=== PATIENT | male | born 1995 | race Caucasian/White ===

== ENCOUNTER 2017-01-02 07:40 | Inpatient (IN) | payer BC, OTHER ==
[~2017-01-02] VITALS: Ht 177.8 cm; Wt 73.5 kg
[2017-01-04] MEDS ORDERED: MAGNESIUM HYDROXIDE 30 ML LIQUID UDC PO PRN (19:30)
[2017-01-04] MEDS ORDERED: CLONIDINE HCL 0.1 MG TABLET PO PRN (19:30)
[2017-01-04] MEDS ORDERED: LORAZEPAM 2 MG/1 ML VIAL IM PRN (19:30)
[2017-01-04] MEDS ORDERED: ACETAMINOPHEN 325 MG TABLET PO PRN (19:30)
[2017-01-04] MEDS ORDERED: LOPERAMIDE HCL 2 MG CAPSULE PO PRN ×2 (19:30)
[2017-01-04] MEDS ORDERED: ONDANSETRON 4 MG/2 ML VIAL IM PRN (19:30)
[2017-01-04] MEDS ORDERED: MAG HYDROX/AL HYDROX/SIMETH 30 ML LIQUID UDC PO PRN (19:30)
[2017-01-04] MEDS ORDERED: ONDANSETRON ODT 4 MG TAB.RAPDIS SL PRN (19:30)
[2017-01-04] MEDS ORDERED: MIRALAX 17 GM POWD.PACK PO PRN (19:30)
[2017-01-04] MEDS ORDERED: LORAZEPAM 1 MG TABLET PO PRN ×2 (19:30)
[2017-01-04 20:28] LABS: BASOPHILS # (AUTO) 0.1 K/uL (0.0-8.0); BASOPHILS % (AUTO) 0.8 % (0.0-2.0); EOSINOPHILS # (AUTO) 0.1 K/uL (0.0-0.7); HEMATOCRIT 43.2 % (40-50); HEMOGLOBIN 14.9 G/DL (14.0-18.0); LYMPHOCYTES # (AUTO) 1.6 K/UL (0.8-4.8); LYMPHOCYTES % (AUTO) 23.2 % (20.5-51.5); MEAN CORPUSCULAR HEMOGLOBIN 30.7 UUG (27.0-31.0); MEAN CORPUSCULAR HGB CONC 34 g/dL (32.0-37.0); MEAN CORPUSCULAR VOLUME 89.3 FL (82.0-92.0); MONOCYTES # (AUTO) 0.6 K/UL (0.1-1.30); MONOCYTES % (AUTO) 8.9 % (0.0-11.0); NEUTROPHILS # (AUTO) 4.7 K/UL (1.8-8.9); NEUTROPHILS % (AUTO) 66.1 % (38.5-71.5); PLATELET COUNT (AUTO) 286 K/UL (150-450); RED BLOOD CELL COUNT(AUTO) 4.84 MIL/UL (4.7-6.1); WHITE BLOOD COUNT (AUTO) 7.1 K/UL (4.0-11.2)
[2017-01-04 20:45] LABS: ALANINE AMINOTRANSFERASE 26 U/L (16-63); ALKALINE PHOSPHATASE 77 U/L (50-136); AMYLASE 52 U/L (25-115); ASPARTATE AMINOTRANSFERASE 21 U/L (15-37); BILIRUBIN,TOTAL 0.7 mg/dL (0.2-1.0); CARBON DIOXIDE 29 mmol/L (21-32); CHLORIDE 101 mmol/L (98-107); GLUCOSE 103 mg/dL (74-106); LIPASE 71 U/L (73-393); MAGNESIUM 1.9 mg/dL (1.8-2.4); POTASSIUM 3.4 mmol/L (3.5-5.1); TOTAL PROTEIN, SERUM 8.7 g/dL (6.4-8.2); UREA NITROGEN, BLOOD 10 mg/dL (7-18)
--- NOTE | 2017-01-04 20:45 | NUR ---
INTAKE ASSESSMENT BP:: 139/87, HR: 57, RR: 18, SpO2: 96%, T: 98 Pain: 5/10 generalized body aches Ht: 5'10" Wt: 162 lbs Pt is in stable condition to be admitted on unit. Unit protocols regarding medications and Vitals signs Q4H were explained. Pt verbalized understanding. Will monitor.
[2017-01-04 20:47] LABS: *AMPHETAMINE, URINE NEGATIVE (NEGATIVE); *BARBITURATE, URINE NEGATIVE (NEGATIVE); *CANNABINOID, URINE POSITIVE (NEGATIVE); *COCCAINE, URINE NEGATIVE (NEGATIVE); *OPIATE, URINE NEGATIVE (NEGATIVE); *PHENCYCLIDINE SCREEN,URINE NEGATIVE (NEGATIVE)
[2017-01-04 20:52] LABS: THYROID STIMULATING HORMONE 0.876 mIU/mL (0.358-3.740)
[2017-01-04 20:54] LABS: ETHANOL < 3 MG/DL (0-0)
[2017-01-04] MEDS ORDERED: THIAMINE HCL 200 MG/2 ML VIAL IM ONE (21:00)
[2017-01-04] MEDS ORDERED: IBUP-1957 PO (21:40)
[2017-01-04] MEDS ORDERED: [UNRECOGNIZED DRUG - CODE] PO (21:40)
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
[2017-01-04] MEDS ORDERED: diphenhydrAMINE 50 MG CAPSULE ONE (22:32)
[2017-01-04] MEDS ORDERED: IBUPROFEN 400 MG TABLET ONE (22:32)
[2017-01-04] MEDS ORDERED: LORAZEPAM 1 MG TABLET ONE (22:32)
--- NOTE | 2017-01-04 22:32 | NUR ---
PRN ATIVAN/MOTRIN/BENADRYL Pt complains of body aches 10/10, inability to sleep, anxiety, and restlessness. PRN Ativan 1 mg, Motrin and Benadryl administered as ordered. Breathing is even and unlabored, safety measures in place. Will monitor effectiveness or medications.
[2017-01-04] MEDS: IBUPROFEN 400 MG TABLET PO PRN (22:34)
[2017-01-04] MEDS: diphenhydrAMINE 50 MG CAPSULE PO PRN (22:35)
--- NOTE | 2017-01-04 23:32 | NUR ---
PRN REASSESSMENT PRN medications effective. Pt noted to be more calm and less anxious. Pt lying in bed appears drowsy and reports he is ready to sleep. Pt also reports decrease in body aches 6/10. Breathing is even and unlabored, safety measures in place. Will monitor.
[2017-01-05] VITALS: BP 123/57
[2017-01-05 04:00] VITALS: BP 117/59
--- NOTE | 2017-01-05 04:00 | NUR ---
COWS/CIWA DEFERRED COWS/CIWA deferred d/t pt lying in bed with eyes closed noted to be asleep. Respirations 16, breathing is even and unlabored. Safety measures in place. Will continue to monitor.
--- NOTE | 2017-01-05 07:00 | NUR ---
END OF SHIFT Pt is a 21 year old male admitted on 01/04/17 for Benzo, ETOH, Opiate, Cocaine and Marijuana dependency. Pt is full code with allergy to PCN. At 2232 he received PRN Motrin, Ativan and Benadryl. He slept a total of 6 hrs, Intake:796mL Void: x2 BM:0 COWS: 5, CIWA: 5. Pt remains alert and oriented x4, breathing is even and unlabored, safety measures in place. Endorsed to oncoming shift.
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
[2017-01-05 08:00] VITALS: BP 129/85
[2017-01-05] MEDS: FOLIC ACID 1 MG TABLET PO SCH (08:21)
[2017-01-05] MEDS: LORAZEPAM 1 MG TABLET PO SCH ×4 (08:21→21:26)
[2017-01-05] MEDS: DOCUSATE SODIUM 250 MG CAPSULE PO SCH (08:21)
[2017-01-05] MEDS: MULTIVITAMINS,THERAPEUTIC TABLET PO SCH (08:21)
[2017-01-05] MEDS: THIAMINE HCL 100 MG TABLET PO SCH (08:22)
[2017-01-05] MEDS ORDERED: TUBERCULIN,PURIF.PROT.DERIV. 5 TU/0.1 ML TEST ID ONE (09:00)
[2017-01-05 12:00] VITALS: BP 133/92
[2017-01-05] MEDS: GABAPENTIN 300 MG CAPSULE PO SCH ×2 (14:19→21:26)
[2017-01-05] MEDS ORDERED: POTASSIUM CHLORIDE 20 MEQ TAB.PRT.SR PO ONE (15:00)
[2017-01-05 16:00] VITALS: BP 134/73
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
[2017-01-05 20:00] VITALS: BP 133/80
[2017-01-05] MEDS: diphenhydrAMINE 50 MG CAPSULE PO PRN (21:26)
--- NOTE | 2017-01-05 21:26 | NUR ---
PRN BENADRYL Pt complains of inability to fall asleep. PRN Benadryl administered as ordered. Breathing even and unlabored, respirations 16, safety measures in place. Will monitor effectiveness.
--- NOTE | 2017-01-05 22:26 | NUR ---
PRN BENADRYL REASSESSMENT PRN medication effective. Pt is lying in bed with eyes closed noted to be asleep. No facial grimacing noted. Respirations 16, breathing is even and unlabored. Safety measures in place. Will continue to monitor.
[2017-01-06] VITALS: BP 122/78
--- NOTE | 2017-01-06 02:20 | NUR ---
MD Communication Pt c/o feeling anxious and generalized body aches=01/04. Contacted Dr. Cardona and ordered Robaxin 750 mg PO Q8HPRN and Vistaril 50 mg PO Q6HPRN. Carried out and primary RN to administer.
[2017-01-06] MEDS ORDERED: HYDROXYZINE PAMOATE 25 MG CAPSULE PO PRN (02:30)
[2017-01-06] MEDS: METHOCARBAMOL 750 MG TABLET PO PRN (02:31)
--- NOTE | 2017-01-06 02:34 | NUR ---
PRN ROBAXIN/VISTARIL Pt complains of body aches 6/10 and anxiety. Pt is observed to be restless. PRN Robaxin and Vistaril administered as ordered. Breathing even and unlabored, safety measures in place. Will monitor effectiveness.
[2017-01-06] MEDS ORDERED: HYDROXYZINE PAMOATE 25 MG CAPSULE ONE (02:36)
[2017-01-06] MEDS ORDERED: METHOCARBAMOL 750 MG TABLET ONE (02:36)
--- NOTE | 2017-01-06 03:34 | NUR ---
PRN ROBAXIN/VISTARIL REASSESSMENT PRN medications effective. Pt is lying in bed with eyes closed noted to be asleep. No facial grimacing noted. Breathing is even and unlabored, safety measures in place. Will monitor.
--- NOTE | 2017-01-06 04:00 | NUR ---
VITALS/COWS/CIWA DEFERRED 0400 vitals refused. COWS/CIWA deferred d/t pt lying in bed with eyes closed noted to be asleep. Respirations 16, breathing is even and unlabored. Safety measures in place. Will monitor.
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
[2017-01-06 08:00] VITALS: BP 99/64
[2017-01-06] MEDS: GABAPENTIN 300 MG CAPSULE PO SCH ×3 (08:22→21:31)
[2017-01-06] MEDS: FOLIC ACID 1 MG TABLET PO SCH (08:22)
[2017-01-06] MEDS: MULTIVITAMINS,THERAPEUTIC TABLET PO SCH (08:22)
[2017-01-06] MEDS: LORAZEPAM 1 MG TABLET PO SCH ×3 (08:22→21:31)
[2017-01-06] MEDS: DOCUSATE SODIUM 250 MG CAPSULE PO SCH (08:22)
[2017-01-06] MEDS: THIAMINE HCL 100 MG TABLET PO SCH (08:22)
[2017-01-06 12:00] VITALS: BP 129/93
[2017-01-06 16:00] VITALS: BP 141/76
[2017-01-06] MEDS ORDERED: LORAZEPAM 1 MG TABLET PO PRN ×2 (18:00)
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
[2017-01-06 20:02] VITALS: BP 139/85
[2017-01-06] MEDS: diphenhydrAMINE 50 MG CAPSULE PO PRN (21:31)
--- NOTE | 2017-01-06 21:31 | NUR ---
PRN BENADRYL Pt complains of insomnia and inability to sleep. Denies auditory/visual hallucinations. PRN Benadryl administered as ordered. Breathing is even and unlabored, safety measures in place. Will continue to monitor effectiveness.
--- NOTE | 2017-01-06 22:31 | NUR ---
PRN BENADRYL REASSESSMENT PRN medication ineffective. Pt still awake, reading in bed unable to fall asleep. Breathing even and unlabored, safety measures in place. Will monitor.
[2017-01-07] VITALS: BP 125/75
[2017-01-07] MEDS: METHOCARBAMOL 750 MG TABLET PO PRN (00:48)
--- NOTE | 2017-01-07 00:48 | NUR ---
PRN ATIVAN/ROBAXIN Pt complains of anxiety/agitation and body aches 11/04. CIWA:7. PRN Ativan and Robaxin administered as ordered. Breathing is even and unlabored, safety measures in place. Will continue to monitor effectiveness.
--- NOTE | 2017-01-07 01:45 | NUR ---
PRN ATIVAN/ROBAXIN REASSESSMENT PRN medications effective. Pt is lying comfortably in bed with eyes closed and is noted to be asleep. No facial grimacing noted. Breathing even and unlabored, safety measures in place. Will monitor.
[2017-01-07 04:07] LABS: HEPATITIS B SURFACE AG Negative (Negative)
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
[2017-01-07 08:00] VITALS: BP 102/58
--- NOTE | 2017-01-07 08:00 | NUR ---
START OF SHIFT NOTE patient is alert X4, orientated to unit. Vital signs WNL. Morning CIWA 4 COWS 4. Patient slept 5 hours last night according to night nurse. Patient states, "sletp much better last night". Patient is on an Ativan taper and tolerating well. All safety measures in place, call light within reach, bed locked and in lowest position. will continue to monitor.
[2017-01-07] MEDS: GABAPENTIN 300 MG CAPSULE PO SCH ×2 (08:50→14:51)
[2017-01-07] MEDS: MULTIVITAMINS,THERAPEUTIC TABLET PO SCH (08:50)
[2017-01-07] MEDS: THIAMINE HCL 100 MG TABLET PO SCH (08:50)
[2017-01-07] MEDS: FOLIC ACID 1 MG TABLET PO SCH (08:51)
[2017-01-07] MEDS: LORAZEPAM 1 MG TABLET PO SCH ×4 (08:51→20:35)
[2017-01-07 12:00] VITALS: BP 143/81
[2017-01-07 16:00] VITALS: BP 118/58
--- NOTE | 2017-01-07 18:51 | NUR ---
END OF SHIFT NOTE Patient is a 21 year old make admitted on 01/02/17 for ETOH and opiate dependence . Patient is full code allergic to penicillin. Patient is alert X 4 vital sign stable throughout the day. His Last CIWA 5 COWS 6. Patient on a 5 day Ativan taper and tolerating well. Patient complaint with medications and MD orders. Patient participated in group and socialized around the unit. No PRN meds given. Patient slept on and off today. All safety measures in place; call light within reach, bed in lowest position, and locked. All needs have been met. Will endorse to oncoming nurse.
--- NOTE | 2017-01-07 19:50 | NUR ---
START OF SHIFT Received report from day shift nurse. Pt is lying in bed watching TV. He is a 21 yo male admitted to [facility] [place] on 01/04 for BZD, ETOH, and opiate dependence with a h/o cocaine and cannabis use. He is A&O x 4 and ambulatory. Allergic to PCN's, full code status, and on a regular diet. He has a PMH of anxiety and seizures. On admission he reported using Xanax 20ng per day, whiskey 500mL per day, oxycodone 30mg per day, heroin 0.2 grams occasionally, cocaine 1 gram, and marijuana 1 gram. He started a 5 day Ativan taper on 01/05. Pt reports anxiety, body aches, runny nose, and tooth pain. Medications due for management of withdrawal symptoms. Fall and seizure precautions in place. Bed is down with call light in reach.
[2017-01-07 20:00] VITALS: BP 129/63
[2017-01-07] MEDS: BACLOFEN 10 MG TABLET PO SCH (20:35)
[2017-01-07] MEDS: IBUPROFEN 400 MG TABLET PO PRN (20:35)
[2017-01-07] MEDS: DICYCLOMINE HCL 20 MG TABLET PO SCH (20:35)
--- NOTE | 2017-01-07 20:36 | NUR ---
PRN Motrin administration Pt reports body aches and tooth pain 02/03. Routine Baclofen and PRN Motrin administered.
[2017-01-07] MEDS ORDERED: GABAPENTIN 300 MG CAPSULE PO SCH (21:00)
[2017-01-08] VITALS: BP 122/76
[2017-01-08] MEDS: TRAZODONE 50 MG TABLET PO PRN
--- NOTE | 2017-01-08 00:02 | NUR ---
PRN Trazodone Pt reports inability to sleep. PRN Trazodone administered per orders.
--- NOTE | 2017-01-08 04:00 | NUR ---
0400 Vitals refused. COWS and CIWA deferred Pt refused to be woken for 0400 vitals. Respirations even and unlabored. COWS and CIWA ordered Q4HWA. Safety measures in place.
--- NOTE | 2017-01-08 07:23 | NUR ---
END OF SHIFT Report provided to day shift nurse. Pt is lying in bed resting. He is a 21 yo male admitted to [facility] on 01/04 for BZD, ETOH, and opiate dependence with a h/o cocaine and cannabis use. He is A&O x 4 and ambulatory. Allergic to PCN's, full code status, and on a regular diet. He has a PMH of anxiety, seizures, and tooth pain currently. On admission he reported using Xanax 20ng per day, whiskey 500mL per day, oxycodone 30mg per day, heroin 0.2 grams occasionally, cocaine 1 gram, and marijuana 1 gram. He started a 5 day Ativan taper on 01/05. PRN Motrin and Trazodone administered. Last COWS 5 and CIWA 3. He drank 946 and slept 5 hours. Fall and seizure precautions in place. Bed is down with call light in reach.
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
[2017-01-08] MEDS: LORAZEPAM 1 MG TABLET PO SCH ×3 (08:30→21:06)
[2017-01-08] MEDS: FOLIC ACID 1 MG TABLET PO SCH (08:31)
[2017-01-08] MEDS: MULTIVITAMINS,THERAPEUTIC TABLET PO SCH (08:31)
[2017-01-08] MEDS: THIAMINE HCL 100 MG TABLET PO SCH (08:31)
[2017-01-08] MEDS: BACLOFEN 10 MG TABLET PO SCH ×2 (08:31→14:47)
[2017-01-08] MEDS: DICYCLOMINE HCL 20 MG TABLET PO SCH ×3 (08:31→21:06)
[2017-01-08] MEDS: GABAPENTIN 300 MG CAPSULE PO SCH ×3 (08:31→21:07)
[2017-01-08 08:35] VITALS: BP 123/70
--- NOTE | 2017-01-08 11:00 | NUR ---
NSG ENTRY Pt observed in room on bed. No distress noted at this time.
[2017-01-08 13:28] VITALS: BP 101/60
[2017-01-08 16:00] VITALS: BP 128/84
--- NOTE | 2017-01-08 18:32 | NUR ---
END OF SHIFT Pt 21 y/o male admitted for benzo , etoh, opioid , coacin, and canniboid. Pt alert and oriented to name, place, and time. Perrla. Skin warm and slightly moist to touch. Respirations even unlabored. Bilateral hand tremors noted slightly. Pt observed mostly in room this morning, but did attend group activity. Pt medication compliant and tolerated well. No ASE noted. Bed on lowest position with side rails x2 up for safety. Call light within reach. No distress noted at this time.
[2017-01-08 20:00] VITALS: BP 138/78
--- NOTE | 2017-01-08 20:00 | NUR ---
START OF SHIFT Received report from day shift nurse. Pt attended a group meeting and returned to his room after. He is a 21 yo male admitted to [facility] on 01/04 for BZD, ETOH, and opiate dependence with a h/o cocaine and cannabis use. He is A&O x 4 and ambulatory. Allergic to PCN's, full code status, and on a regular diet. He has a PMH of anxiety and seizures. On admission he reported using Xanax 20ng per day, whiskey 500mL per day, oxycodone 30mg per day, heroin 0.2 grams occasionally, cocaine 1 gram, and marijuana 1 gram. He started a 5 day Ativan taper on 01/05. Pt reports anxiety, tooth pain, and is noted with dilated pupils. Ativan taper due tonight. Fall and seizure precautions in place. Bed is down with call light in reach.
[2017-01-08] MEDS ORDERED: BACLOFEN 10 MG TABLET PO SCH (21:00)
[2017-01-08] MEDS: BACLOFEN 20 MG TABLET PO SCH (21:06)
[2017-01-08] MEDS: BENZOCAINE ORAL CARE 12 ML BOTTLE MM PRN (21:07)
[2017-01-08] MEDS: IBUPROFEN 400 MG TABLET PO PRN (21:07)
--- NOTE | 2017-01-08 21:07 | NUR ---
PRN Motrin and Anbesol administration Pt c/o tooth pain 01/04 related to multiple cavities. PRN Anbesol and Motrin administered.
--- NOTE | 2017-01-08 22:07 | NUR ---
PRN Anbesol and Motrin reassessment PRN Anbesol and Motrin effective. Pt reports relief of tooth pain.
[2017-01-09] VITALS: BP 130/79
[2017-01-09] MEDS: TRAZODONE 50 MG TABLET PO PRN ×2 (00:47→21:48)
--- NOTE | 2017-01-09 00:48 | NUR ---
PRN Trazodone administration Pt c/o inability to sleep. PRN Trazodone administered.
--- NOTE | 2017-01-09 01:48 | NUR ---
PRN Trazodone reassessment PRN Trazodone effective. Pt is lying comfortably in bed resting with eyes closed. Respirations even and unlabored. Safety measures in place.
--- NOTE | 2017-01-09 04:00 | NUR ---
0400 Vitals refused. 0400 COWS and CIWA deferred. Pt refused to be woken for 0400 vitals. Respirations even and unlabored. COWS and CIWA ordered Q4HWA. Safety measures in place.
--- NOTE | 2017-01-09 07:17 | NUR ---
END OF SHIFT Report provided to day shift nurse. Pt is lying in bed resting. He is a 21 yo male admitted to [facility] on 01/04 for BZD, ETOH, and opiate dependence with a h/o cocaine and cannabis use. He is A&O x 4 and ambulatory. Allergic to PCN's, full code status, and on a regular diet. He has a PMH of anxiety and seizures. He currently has tooth pain r/t multiple cavities. On admission he reported using Xanax 20ng per day, whiskey 500mL per day, oxycodone 30mg per day, heroin 0.2 grams occasionally, cocaine 1 gram, and marijuana 1 gram. Pt started a 5 day Ativan taper on 01/05. PRN Anbesol, Motrin, and Trazodone administered. He drank 1446mL and slept for 7 hours. Fall and seizure precautions in place. Bed is down with call light in reach.
[2017-01-09 08:00] VITALS: BP 116/76
--- NOTE | 2017-01-09 08:09 | NUR ---
START OF SHIFT Pt 21 y/o male admitted for benzo , etoh, opioid , coacin, and canniboid. Pt received in room on bed with eyes closed resting, but easily arousable to name. Pt alert and oriented to name, place, and time. Perrla. Skin warm and slightly moist to touch. Respirations even unlabored. Bilateral hand tremors noted slightly. It was reported that pt slept for 7 hours last night. Bed on lowest position with side rails x2 up for safety. Call light within reach. No distress noted at this time.
[2017-01-09] MEDS: IBUPROFEN 400 MG TABLET PO PRN (08:32)
[2017-01-09] MEDS: FOLIC ACID 1 MG TABLET PO SCH (08:32)
[2017-01-09] MEDS: BENZOCAINE ORAL CARE 12 ML BOTTLE MM PRN (08:33)
[2017-01-09] MEDS: LORAZEPAM 1 MG TABLET PO SCH ×2 (08:33→21:45)
[2017-01-09] MEDS: GABAPENTIN 300 MG CAPSULE PO SCH ×3 (08:33→21:45)
[2017-01-09] MEDS: THIAMINE HCL 100 MG TABLET PO SCH (08:33)
[2017-01-09] MEDS: BACLOFEN 20 MG TABLET PO SCH ×3 (08:33→21:45)
[2017-01-09] MEDS: MULTIVITAMINS,THERAPEUTIC TABLET PO SCH (08:33)
[2017-01-09] MEDS: DICYCLOMINE HCL 20 MG TABLET PO SCH ×3 (08:33→21:45)
--- NOTE | 2017-01-09 08:39 | NUR ---
PRN Pt with c/o body pain 11/04. Motrin po prn per MD order given and tolerated well.
--- NOTE | 2017-01-09 08:39 | NUR ---
PRN Pt with c/o tooth pain 01/04. Anbesol prn per MD order given and tolerated well.
--- NOTE | 2017-01-09 09:39 | NUR ---
PRN EVAL Pt with no c/o body pain noted, but still states has periodic tooth aches.
[2017-01-09 12:00] VITALS: BP 141/82
--- NOTE | 2017-01-09 14:31 | NUR ---
PRN Pt states he is anxious. Pressured speech observed. Catapres po prn per MD order given and tolerated well.
--- NOTE | 2017-01-09 15:31 | NUR ---
PARDEEP ELLIS Pt observed in activity room sitting on couch. No distress noted at this time.
[2017-01-09 17:16] VITALS: BP 132/78
--- NOTE | 2017-01-09 18:03 | NUR ---
END OF SHIFT Pt 21 y/o male admitted for benzo , etoh, opioid , cocaine, and canniboid. Pt alert and oriented to name, place, and time. Perrla. Skin warm and slightly moist to touch. Respirations even unlabored. Bilateral hand tremors noted slightly. Pt observed mostly in dining room and did attend group activity. Pt medication compliant and tolerated well. No ASE noted. Pt was seen by Dr. Mosley today. Bed on lowest position with side rails x2 up for safety. Call light within reach. No distress noted at this time.
[2017-01-09 20:00] VITALS: BP 123/81
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
--- NOTE | 2017-01-09 21:48 | NUR ---
PRN TRAZADONE ADMINISTRATION PATIENT REQUESTS FOR SLEEP AID. PRN TRAZADONE GIVEN. WILL MONITOR FOR EFFECTIVENESS
--- NOTE | 2017-01-09 23:30 | NUR ---
PRN TRAZADONE RE-ASSESSMENT PATIENT IN BED ASLEEP. RESPIRATION EVEN AND UNLABORED. NO S/S OF DISTRESS. SAFETY MEASURES IN PLACE. CALL LIGHT IN REACH. WILL CONTINUE TO MONITOR.
[2017-01-10] VITALS: BP 107/58
[2017-01-10 04:00] VITALS: BP 111/59
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
--- NOTE | 2017-01-10 07:19 | NUR ---
BEGINNING OF SHIFT Patient endorsement report received from nightclub manager nurse, all pertinent information discussed. Patient is a 21 year old male admitted on 01/02/2017, patient currently With ongoing 5 day Ativan taper as ordered, is currently on day 5 of taper. Patient with last ciwa score of: 1 and cow score of: 1. as per nightclub manager. Patient received PRN: Trazodone, during nightclub manager, as per nightclub manager medications were effective, patient slept for 7 hours. Patient received in room, awake alert and oriented x4, educated regarding plan of care and medication regimen for the day with good verbal understanding. Safety measures in place. call light kept with in reach, will continue to monitor closely.
[2017-01-10 08:43] VITALS: BP 100/60
[2017-01-10] MEDS: MULTIVITAMINS,THERAPEUTIC TABLET PO SCH (08:46)
[2017-01-10] MEDS: BACLOFEN 20 MG TABLET PO SCH ×3 (08:46→21:48)
[2017-01-10] MEDS: GABAPENTIN 300 MG CAPSULE PO SCH ×3 (08:46→21:48)
[2017-01-10] MEDS: FOLIC ACID 1 MG TABLET PO SCH (08:46)
[2017-01-10] MEDS: DICYCLOMINE HCL 20 MG TABLET PO SCH ×3 (08:46→21:48)
[2017-01-10] MEDS: THIAMINE HCL 100 MG TABLET PO SCH (08:46)
[2017-01-10] MEDS ORDERED: LORAZEPAM 1 MG TABLET PO SCH (09:00)
[2017-01-10 13:00] VITALS: BP 118/70
[2017-01-10 17:00] VITALS: BP 136/90
[2017-01-10] MEDS ORDERED: GABA-534 PO (18:37)
[2017-01-10] MEDS ORDERED: DICY20TA28 PO (18:37)
[2017-01-10] MEDS ORDERED: BACL20TA PO (18:37)
[2017-01-10] MEDS ORDERED: CLON0.1T14 PO (18:37)
[2017-01-10] MEDS ORDERED: TRAZ-144 PO (18:37)
--- NOTE | 2017-01-10 18:52 | NUR ---
END OF SHIFT Patient alert and oriented x4, vital signs were stable during shift. patient compliant with therapeutic plan of care. 0900 Assessment patient presented with:tremors that can be felt but not seen, mild anxiety, barely sweating, mild agitation with cow score of: 2 and ciwa score of: 4. 1300 assessment patient presented with: tremors that can be felt but not seen and mild anxiety with cow score of: 2 and ciwa score of: 2 1700 assessment patient presented with:mild anxiety and tremors that can be felt but not seen with cow score of: 2 and ciwa score of: 2. Patient received no PRNs during shift. Patient encouraged to attend group therapies/sessions to learn new coping skills to prevent relapse, noted attending and participating. Patient is scheduled for discharge tomorrow, noted self motivated towards sobriety. patient denies any SI/HI. safety measures in place. call light kept with in reach. patient endorsed to assembler 1st shift nurse, all pertinent information discussed. will continue to monitor closely.
[2017-01-10 20:00] VITALS: BP 128/86
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
[2017-01-10 20:41] LABS: *AMPHETAMINE, URINE NEGATIVE (NEGATIVE); *BARBITURATE, URINE NEGATIVE (NEGATIVE); *CANNABINOID, URINE NEGATIVE (NEGATIVE); *COCCAINE, URINE NEGATIVE (NEGATIVE); *OPIATE, URINE NEGATIVE (NEGATIVE); *PHENCYCLIDINE SCREEN,URINE NEGATIVE (NEGATIVE)
[2017-01-10] MEDS: IBUPROFEN 400 MG TABLET PO PRN (21:51)
--- NOTE | 2017-01-10 21:51 | NUR ---
PRN MOTRIN ADMINISTRATION PATIENT C/O HEADACHE 12/04. PRN MOTRIN GIVEN. WILL MONITOR FOR EFFECTIVENESS
--- NOTE | 2017-01-10 22:51 | NUR ---
PRN MOTRIN RE-ASSESSMENT PATIENT STATES MOTRIN HELPFUL . HEADACHE SUBSIDED. PAIN LEVEL 2/10, TOLERABLE. WILL CONTINUE TO MONITOR.
[2017-01-10] MEDS: TRAZODONE 50 MG TABLET PO PRN (23:38)
--- NOTE | 2017-01-10 23:38 | NUR ---
PRN TRAZADONE ADMINISTRATION PATIENT REQUESTS FOR SLEEP AID. PRN TRAZADONE GIVEN .WILL MONITOR FOR EFFECTIVENESS
[2017-01-11] VITALS: BP 112/76
--- NOTE | 2017-01-11 00:38 | NUR ---
PRN TREAZADONE RE-ASSESSMENT PATIENT ASLEEP AT THIS TIME. NO S/S OF DISTRESS. RESPIRATION EVEN AND UNLABORED. SFETY MEASURES IN PLACE. CALL LIGHT IN REACH. WILL CONTINUE TO MONITOR
[2017-01-11 04:00] VITALS: BP 99/64
--- NOTE | 2017-01-11 07:00 | NUR ---
Start of Shift Endorsement received from nightshift nurse. Pt is a 21 y/o male admitted for Xanax, alcohol and oxycodone dependence. Pt has been placed on a 5 day Ativan taper. Pt has completed the taper and has been scheduled to be discharged today, 01/11/17. PT is not withdrawing at this time AEB COWS 0, CIWA 0. Pt reports sleeping 7 hours. All documentation has been signed and dated. Discharge education has been provided to pt. PT is alert and oriented x4. Pt is in STABLE condition at this time. Remains compliant with medication and diet regimen. All needs have been met, All safety measures in place per hospital policy. Bed in lowest position, side rails up x2, call-light within reach. Will continue to monitor
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
[2017-01-11 08:00] VITALS: BP 118/82
[2017-01-11] MEDS: BACLOFEN 20 MG TABLET PO SCH (08:15)
[2017-01-11] MEDS: MULTIVITAMINS,THERAPEUTIC TABLET PO SCH (08:15)
[2017-01-11] MEDS: GABAPENTIN 300 MG CAPSULE PO SCH (08:15)
[2017-01-11] MEDS: THIAMINE HCL 100 MG TABLET PO SCH (08:15)
[2017-01-11] MEDS: DICYCLOMINE HCL 20 MG TABLET PO SCH (08:15)
[2017-01-11] MEDS: FOLIC ACID 1 MG TABLET PO SCH (08:15)
--- NOTE | 2017-01-11 09:35 | NUR ---
Discharge Note PT has been discharged from [facility]. PT is in Stable condition, VS WNL. Denies suicidal and homicidal ideations at this time. . All documentation has been completed, paperwork signed and dated. Pt left with all of his belongings, medications and prescriptions. Pt has been discharged from [facility] on 01/11/17 at 0935. has been Notified.
== END 2017-01-11 09:35 | disposition other institution (70) | DRG 895 ==
LOC: SRC 01-04 19:27
PROVIDERS: ADMIT Internal Medicine; ATTEND Internal Medicine
DX: F10.232 Alcohol dependence with withdrawal with perceptual disturbance (principal); F14.20 Cocaine dependence, uncomplicated; F13.230 Sedative, hypnotic or anxiolytic dependence with withdrawal, uncomplicated; Y90.9 Presence of alcohol in blood, level not specified; E87.6 Hypokalemia; Z88.0 Allergy status to penicillin; F17.210 Nicotine dependence, cigarettes, uncomplicated; K05.10 Chronic gingivitis, plaque induced; F41.9 Anxiety disorder, unspecified; G47.00 Insomnia, unspecified; F11.10 Opioid abuse, uncomplicated; F12.90 Cannabis use, unspecified, uncomplicated; S00.83XD Contusion of other part of head, subsequent encounter; Y35.93XD Legal intervention, means unspecified, suspect injured, subsequent encounter
CPT/HCPCS: 36415; 70030-TC; 80307; 83690; 83735; 84443; 85025; 86580; 86592; 86705; 86803; 87340; 87806; A9150; G0480; J3411; Q0163